=== PATIENT | female | born 1985 | race African-American/Black ===

== ENCOUNTER 2019-05-20 15:01 | Observation (INO) | payer OTHER, SELFPAY ==
[2019-05-20] VITALS (142 sets, daily range): BP systolic 136–193; BP diastolic 80–128; PULSE 82–105; RESP 14–18; TEMP 36.7–37.2; O2SAT 98–100; BMI 34.0
[2019-05-20] MEDS: LACTATED RINGERS 1,000 ML 75 ML IV CONT (15:45)
[2019-05-20 15:50] LABS: Basophils Percent Auto 0.3 % (0.2-1.2); Eosinophils Absolute Auto 0.1 K/mm3 (0-0.3); Eosinophils Percent Auto 0.4 % (0-4.4); Hemoglobin 13.9 g/dL (12.0-15.0); Immature Granulocyte Absolute 0.08 K/mm3 (0.00-0.031); Immature Granulocyte Percent A 0.6 % (0-0.5); Lymphocytes Absolute Auto 3.38 K/mm3 (0.9-3.2); Lymphocytes Percent Auto 24.5 % (18.3-44.2); Mean Corpuscular HGB Conc 33.1 g/dl (32-36); Mean Corpuscular Hemoglobin 29.8 pg (26-34); Mean Corpuscular Volume 89.9 fl (80-100); Mean Platelet Volume 9.5 fl (7.4-10.4); Monocytes Percent Auto 7.1 % (2.6-8.5); Neutrophils Absolute Auto 9.3 K/mm3 (1.3-6.7); Neutrophils Percent Auto 67.1 % (45.5-73.1); Platelet Count Result 438 k/mm3 (150-375); Red Blood Count 4.67 M/mm3 (4.2-5.4); Red Cell Distribution Width 15.6 % (11.5-14.5); White Blood Count 13.8 K/mm3 (4.5-10.0)
[2019-05-20] MEDS: LABETALOL HCL INJ 100 MG/20 ML VIAL 20 MG IV PUSH (15:50)
[2019-05-20] MEDS: MAGNESIUM SULF 4 GM/WATER100ML 4 GM/100 ML BAG IVPB (15:52)
[2019-05-20 15:55] LABS: Add Urine Microscopic? YES; Appearance Urine Clear (Clear); Bilirubin Urine Negative (Negative); Blood Urine 1+ (Negative); Color Urine Straw (Yellow); Glucose Urine UA Negative (Negative); Ketones Urine Negative (Negative); Leukocyte Esterase Ur Negative LEU/UL (Negative); Nitrate Urine Negative (Negative); Protein Urine 2+ mg/dL (Negative); RBC Urine 0-2 /hpf (0-2); Specific Grav Ur 1.005 (1.001-1.035); Squamous Epithelial Cell Urine Many /hpf (Few); Urobilinogen Urine Negative mg/dL (<2.0); WBC Urine 0-3 /hpf
[2019-05-20] MEDS: BETAMETHASONE SOD PHOS/ACETATE 30 MG/5 ML VIAL 12 MG IM (16:00)
[2019-05-20 16:03] LABS: Alanine Aminotransferase 22 U/L (4-35); Albumin Level 3.8 g/dL (3.5-5.1); Alkaline Phosphatase 344 U/L (38-126); Aspartate Amino Transferase 29 U/L (14-36); Bilirubin,Total 0.2 mg/dL (0.2-1.3); Blood Urea Nitrogen 5 mg/dL (7-17); Calcium 9.3 mg/dL (8.4-10.2); Carbon Dioxide 25 mmol/L (22-30); Chloride 98 mmol/L (98-107); Estimated Glomerular Filt Rate > 60; Glucose 87 mg/dL (65-105); Potassium 3.1 mmol/L (3.4-5.0); Sodium 133 mmol/L (137-145); Uric Acid 6.2 mg/dL (2.5-7.5)
[2019-05-20] MEDS: LABETALOL HCL INJ 100 MG/20 ML VIAL 40 MG IV PUSH (16:06)
--- NOTE | 2019-05-20 16:12 | OBADM ---
This patient, Preethi Cagle, admitted to the OB room 113 at 1501 for observation from office with severe hypertension in . Patient/family oriented to hospital policies and general routines including ID bracelet, bed and alarms, visiting hours, pain management, procedures, bathroom and other care routines, personal items, smoking policy, room service/diet, and visiting hours. Patient/Family are encouraged to report perceived risks to care and to ask questions if they do not understand what they are told or what they should do.
[2019-05-20] MEDS: MAGNESIUM SULF 20GM/WATER500ML 500 ML 50 MG IV CONT (16:22)
[2019-05-20] MEDS: LABETALOL HCL INJ 100 MG/20 ML VIAL 80 MG IV PUSH ×2 (16:26→16:42)
[2019-05-20 16:31] LABS: Creatinine Urine 40.3 mg/dL; Total Protein Urine Random 118 mg/dL
[2019-05-20] MEDS: hydrALAZINE HCL 20 MG/ML VIAL 10 MG IV PUSH (17:00)
[2019-05-20] MEDS: NIFEdipine 30 MG TAB.ER.24 PO (17:28)
--- NOTE | 2019-05-20 18:41 | PC.NURSE ---
Dr. Gibbons updated on patient VS, including BPs. Plan of care reviewed. Patient will be monitored over night and Dr. Gibbons will re-evaluate in the AM.
--- NOTE | 2019-05-20 18:50 | PC.NURSE ---
Plan of care discussed with patient. Patient states understanding of plan of care and denies questions at present time.
--- NOTE | 2019-05-20 20:25 | PC.NURSE ---
Plan of care discussed with Dr. Gibbons. Orders for regular diet given. FHT may be monitored intermittently if patient requests.
--- NOTE | 2019-05-20 22:50 | PC.NURSE ---
Patient reports headache rated 3/10. Patient denies epigastric pain or changes in vision. BP WNL. Reflexes 2+ without clonus.
--- NOTE | 2019-05-20 22:55 | PC.NURSE ---
Dr. Gibbons notified of patient JACOBS and recent BP. Orders given for acteminophen 1000mg PO q6hr PRN for JACOBS. Orders also given for 30ml Procardia XL PO QAM.
[2019-05-20] MEDS: ACETAMINOPHEN 500 MG TABLET 1000 MG PO (23:12)
[2019-05-21] VITALS (233 sets, daily range): BP systolic 127–167; BP diastolic 75–103; PULSE 81–129; RESP 14; TEMP 36.2–36.8; O2SAT 98–100
[2019-05-21] MEDS: MAGNESIUM SULF 20GM/WATER500ML 500 ML 50 MG IV CONT ×2 (02:18→12:02)
[2019-05-21] MEDS: LACTATED RINGERS 1,000 ML 75 ML IV CONT (04:07)
[2019-05-21] MEDS: ACETAMINOPHEN 500 MG TABLET 1000 MG PO (06:13)
[2019-05-21] MEDS: NIFEdipine 30 MG TAB.ER.24 PO ×2 (09:06→21:05)
[2019-05-21] MEDS: ONDANSETRON INJ 4 MG/2 ML VIAL IV PUSH (12:55)
[2019-05-21] MEDS: ASPIRIN 81 MG ENTERIC TABLET PO (13:32)
[2019-05-21] MEDS: BETAMETHASONE SOD PHOS/ACETATE 30 MG/5 ML VIAL 12 MG IM (15:57)
--- NOTE | 2019-05-21 18:37 | PC.NURSE ---
1805 -Patient states feeling better. Denies any weakness. Requests a shower. Patient allowed to shower and educated on symptoms to call out for. Patient verbalizes understanding.
--- NOTE | 2019-05-21 18:40 | PC.NURSE ---
1828 - Patient done in shower and back in bed. No complaints of dizziness, lightheadedness or nausea.
[2019-05-21] MEDS: metFORMIN HCL 500 MG TABLET 1000 MG PO (21:05)
[2019-05-21] MEDS: MULTIVIT/MIN/PREN/FOL AC/IRON TABLET 1 TAB PO (22:07)
[2019-05-22] VITALS (48 sets, daily range): BP systolic 134–166; BP diastolic 79–104; PULSE 79–124; O2SAT 98–100
--- NOTE | 2019-05-22 06:06 | PC.NURSE ---
@0600 - patient recorded blood pressure of 162/104. Patient laying on arm. Cuff repositioned and blood pressure re-ran. New blood pressure of 134/87 recorded.
[2019-05-22] MEDS: NIFEdipine 30 MG TAB.ER.24 PO ×3 (09:07→21:07)
[2019-05-22] MEDS: ASPIRIN 81 MG ENTERIC TABLET PO (09:07)
[2019-05-22] MEDS: ERGOCALCIFEROL 50,000 UNIT CAPSULE 50000 UNITS PO (09:07)
--- NOTE | 2019-05-22 11:23 | PM.IMHP ---
H&P: HPI History of Present Illness Chief complaint: pih Narrative: Preethi Cagle is a 33 year old female @ 28 weeks admitted for elevated bps in the office. reports feels okay had occassional headache at home with positive movement. Recent ultrasound showed 28 week with 8th percentile. Patient also had a shortened cervix on last ultrasound and started on progesterone therapy. PMFSH Past Medical History Medical History (Updated 05/22/19 @ 11:26 by Agustin Small MD) Chronic hypertension affecting Family History Family History (Updated 12/08/15 @ 23:19 by DOCTOR UNKNOWN) Mother Hypertension Family history of type 2 diabetes mellitus Father Hypertension Family history of type 2 diabetes mellitus Grandparent Family history of pancreatic cancer Family history of malignant neoplasm of breast Family history of type 2 diabetes mellitus Social History Social History (Updated 05/22/19 @ 11:26 by Agustin Small MD) Smoking status: Former smoker Tobacco type: cigarettes Alcohol intake: current Meds Home Medications and Allergies Home Medications Medication Instructions Recorded Confirmed Type PNV cmb#95-ferrous fumarate-FA 1 tablet PO DAILY 05/20/19 05/20/19 History [] ergocalciferol (vitamin D2) 50,000 unit PO WEEKLY 05/20/19 05/20/19 History [Vitamin D2] metformin 1,000 mg PO DAILY 05/20/19 05/20/19 History progesterone micronized 100 mg VAGINAL HS 05/20/19 05/20/19 History aspirin [Aspirin Low Dose] 81 mg PO DAILY 05/21/19 05/21/19 History Allergies Allergy/AdvReac Type Severity Reaction Status Date / Time No Known Allergies Allergy Mild Verified 05/20/19 17:06 Vital Signs Vital Signs - 24 hr 05/21/19 11:26 05/21/19 11:31 05/21/19 11:36 Pulse Rate Blood Pressure Pulse Oximetry 100 100 100 05/21/19 11:41 05/21/19 11:46 05/21/19 11:51 Pulse Rate Blood Pressure Pulse Oximetry 100 100 99 05/21/19 11:56 05/21/19 12:00 05/21/19 12:01 Pulse Rate 88 Blood Pressure 144/86 H Pulse Oximetry 98 98 05/21/19 12:06 05/21/19 12:11 05/21/19 12:16 Pulse Rate Blood Pressure Pulse Oximetry 98 100 99 05/21/19 12:21 05/21/19 12:26 05/21/19 12:31 Pulse Rate Blood Pressure Pulse Oximetry 100 100 100 05/21/19 12:36 05/21/19 12:41 05/21/19 12:46 Pulse Rate Blood Pressure Pulse Oximetry 100 100 100 05/21/19 12:51 05/21/19 12:56 05/21/19 13:00 Pulse Rate 98 Blood Pressure 165/99 H Pulse Oximetry 100 100 05/21/19 13:01 05/21/19 13:06 05/21/19 13:08 Pulse Rate 92 Blood Pressure 149/90 H Pulse Oximetry 100 99 05/21/19 13:11 05/21/19 13:16 05/21/19 13:21 Pulse Rate Blood Pressure Pulse Oximetry 99 100 100 05/21/19 13:26 05/21/19 13:31 05/21/19 13:36 Pulse Rate Blood Pressure Pulse Oximetry 100 100 100 05/21/19 13:41 05/21/19 13:46 05/21/19 13:51 Pulse Rate Blood Pressure Pulse Oximetry 99 100 99 05/21/19 13:56 05/21/19 14:01 05/21/19 14:06 Pulse Rate 98 Blood Pressure 135/75 Pulse Oximetry 100 100 100 05/21/19 14:11 05/21/19 14:16 05/21/19 14:21 Pulse Rate Blood Pressure Pulse Oximetry 100 100 99 05/21/19 14:26 05/21/19 14:31 05/21/19 14:36 Pulse Rate Blood Pressure Pulse Oximetry 100 100 100 05/21/19 14:41 05/21/19 14:46 05/21/19 14:51 Pulse Rate Blood Pressure Pulse Oximetry 100 100 100 05/21/19 14:53 05/21/19 14:58 05/21/19 15:00 Pulse Rate 99 Blood Pressure 153/90 H Pulse Oximetry 100 100 05/21/19 15:03 05/21/19 15:08 05/21/19 15:13 Pulse Rate Blood Pressure Pulse Oximetry 100 100 100 05/21/19 15:18 05/21/19 15:23 05/21/19 15:28 Pulse Rate Blood Pressure Pulse Oximetry 100 100 98 05/21/19 15:33 05/21/19 15:38 05/21/19 15:43 Pulse Rate Blood Pressure Pulse Oximetry 100 100 98 05/21/19 15:48 05/21/19 15:53 05/21/19 15:5
[2019-05-22 11:27] LABS: Total Volume 24 Hour Urine 6100 ml
[2019-05-22 11:28] LABS: Total Volume 24 Hour Urine 6100 ml
[2019-05-22 11:33] LABS: Specific Gravity Ur 1.003
[2019-05-22 11:43] LABS: Creatinine 24 Hour Urine 1.5 gm/24 (0.8-1.8); Creatinine Urine 26.1 mg/dL
[2019-05-22 11:55] LABS: Collection Time Urine 24 HOURS; Patient Weight 198 Lbs; Total Volume 24 Hour Urine 6100 ml
[2019-05-22 11:56] LABS: Creatinine Clearance Urine 8.1 ml/min (75-125); Creatinine Urine 1.5 mg/dL
[2019-05-22 16:12] LABS: Total Protein Urine Random 18 mg/dL
[2019-05-22] MEDS: LABETALOL HCL 100 MG TABLET 200 MG PO (19:03)
[2019-05-22] MEDS: MULTIVIT/MIN/PREN/FOL AC/IRON TABLET 1 TAB PO (21:07)
[2019-05-22] MEDS: metFORMIN HCL 500 MG TABLET 1000 MG PO (21:07)
[2019-05-22] MEDS: ZOLPIDEM TARTRATE 5 MG TABLET PO (22:06)
[2019-05-23] VITALS (87 sets, daily range): BP systolic 126–151; BP diastolic 72–102; PULSE 82–236; TEMP 36.6; O2SAT 90–100
[2019-05-23] MEDS: LABETALOL HCL 100 MG TABLET 200 MG PO (06:16)
[2019-05-23] MEDS: ASPIRIN 81 MG ENTERIC TABLET PO (09:12)
[2019-05-23] MEDS: NIFEdipine 30 MG TAB.ER.24 60 MG PO (09:12)
--- NOTE | 2019-05-23 10:54 | PC.NURSE ---
Patient called in, stated prescriptions were not ready at pharmacy. Called [facility] pharmacy in [place], verbal order for other medications given. Ambien was the only medication that the pharmacy received. 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
[2019-05-27 11:02] LABS: Total Protein Urine 24 Hr 1098 mg/24hr (0-149)
--- NOTE | 2019-07-05 08:11 | PM.OBTRLD ---
OB - Triage/Final Diagnosis Evaluation Laboratory results: Laboratory Tests 05/20/19 05/20/19 05/20/19 15:41 15:41 15:41 WBC 13.8 H RBC 4.67 Hgb 13.9 Hct 42.0 MCV 89.9 MCH 29.8 MCHC 33.1 RDW 15.6 H Plt Count 438 H MPV 9.5 Immature Gran % (Auto) 0.6 H Neut % (Auto) 67.1 Lymph % (Auto) 24.5 Gordon % (Auto) 7.1 Eos % (Auto) 0.4 Baso % (Auto) 0.3 Lymph # (Auto) 3.38 H Gordon # (Auto) 1.0 H Eos # (Auto) 0.1 Baso # (Auto) 0.0 Abs Immat Gran (auto) 0.08 H Absolute Neuts (auto) 9.3 H Absolute Nucleated RBC 0.0 Nucleated RBC % 0.0 Sodium 133 L Potassium 3.1 L Chloride 98 Carbon Dioxide 25 BUN 5 L Creatinine 0.70 Estim Creat Clear Calc Not Reportable Estimated GFR > 60 Glucose 87 Uric Acid 6.2 Calcium 9.3 Total Bilirubin 0.2 AST 29 ALT 22 Alkaline Phosphatase 344 H Total Protein 8.0 Albumin 3.8 Urine Color Urine Appearance Urine pH Ur Specific [place] Urine Protein Urine Glucose (UA) Urine Ketones Ur Blood (Man) Urine Nitrate Urine Bilirubin Urine Urobilinogen Leukocyte Esterase Rfl Urine RBC Urine WBC Ur Squamous Epith Cells U Random Total Protein 118 Ur 24 Hour Volume Urine Creatinine 40.3 Ur Creatinine 24 Hour Creatinine Clearance Ur Total Protein 24 Hr 05/20/19 05/21/19 05/21/19 15:41 10:00 10:00 WBC RBC Hgb Hct MCV MCH MCHC RDW Plt Count MPV Immature Gran % (Auto) Neut % (Auto) Lymph % (Auto) Gordon % (Auto) Eos % (Auto) Baso % (Auto) Lymph # (Auto) Gordon # (Auto) Eos # (Auto) Baso # (Auto) Abs Immat Gran (auto) Absolute Neuts (auto) Absolute Nucleated RBC Nucleated RBC % Sodium Potassium Chloride Carbon Dioxide BUN Creatinine Estim Creat Clear Calc Estimated GFR Glucose Uric Acid Calcium Total Bilirubin AST ALT Alkaline Phosphatase Total Protein Albumin Urine Color Straw Urine Appearance Clear Urine pH 6.0 Ur Specific [place] 1.005 Urine Protein 2+ H Urine Glucose (UA) Negative Urine Ketones Negative Ur Blood (Man) 1+ H Urine Nitrate Negative Urine Bilirubin Negative Urine Urobilinogen Negative Leukocyte Esterase Rfl Negative Urine RBC 0-2 Urine WBC 0-3 Ur Squamous Epith Cells Many H U Random Total Protein 18 Ur 24 Hour Volume 6100 6100 Urine Creatinine 26.1 Ur Creatinine 24 Hour 1.5 Creatinine Clearance Ur Total Protein 24 Hr 1098 H 05/21/19 10:00 WBC RBC Hgb Hct MCV MCH MCHC RDW Plt Count MPV Immature Gran % (Auto) Neut % (Auto) Lymph % (Auto) Gordon % (Auto) Eos % (Auto) Baso % (Auto) Lymph # (Auto) Gordon # (Auto) Eos # (Auto) Baso # (Auto) Abs Immat Gran (auto) Absolute Neuts (auto) Absolute Nucleated RBC Nucleated RBC % Sodium Potassium Chloride Carbon Dioxide BUN Creatinine Estim Creat Clear Calc Estimated GFR Glucose Uric Acid Calcium Total Bilirubin AST ALT Alkaline Phosphatase Total Protein Albumin Urine Color Urine Appearance Urine pH Ur Specific [place] Urine Protein Urine Glucose (UA) Urine Ketones Ur Blood (Man) Urine Nitrate Urine Bilirubin Urine Urobilinogen Leukocyte Esterase Rfl Urine RBC Urine WBC Ur Squamous Epith Cells U Random Total Protein Ur 24 Hour Volume 6100 Urine Creatinine 1.5 Ur Creatinine 24 Hour Creatinine Clearance 8.1 L Ur Total Protein 24 Hr Final Diagnosis (1) Pre-eclampsia affecting with pre-existing hypertension, delivered, current hospitalization: Status: Acute
== END 2019-05-23 10:20 | disposition home or self-care (01) ==
PROVIDERS: Admitting Provider Obstetrics & Gynecology Gynecology; Visit Provider Obstetrics & Gynecology
DX: O11.5 Pre-existing hypertension with pre-eclampsia, complicating the puerperium (principal); O10.93 Unspecified pre-existing hypertension complicating the puerperium; Z87.891 Personal history of nicotine dependence; Z79.82 Long term (current) use of aspirin; Z79.899 Other long term (current) drug therapy
CPT/HCPCS: 36415; 59025; 80053; 81001; 81050; 82570; 82575; 84156; 84550; 85025; 96361; 96365; 96366; 96372; 96375; 96376; A9270; G0378; G0379; J0360; J0702; J2405; J3475; J7120

== ENCOUNTER 2019-10-20 00:22 | Outpatient (CLI) | payer OTHER, SELFPAY ==
[2019-10-20 17:33] LABS: SARS-CoV-2 RNA PCR Negative
== END 2019-10-20 00:23 | disposition home or self-care (01) ==
LOC: ANHCOVIDDT 00:22
PROVIDERS: PCP Family Medicine; Visit Provider Obstetrics & Gynecology
DX: Z01.812 Encounter for preprocedural laboratory examination (principal); Z20.828 Contact with and (suspected) exposure to other viral communicable diseases
CPT/HCPCS: 87635; C9803; U0003

== ENCOUNTER 2019-10-20 08:19 | Outpatient (CLI) | payer OTHER, SELFPAY ==
--- NOTE | 2019-10-20 08:21 | ECG_ITS ---
Measurements Intervals [place] Rate: 101 P: 57 HI: 122 QRS: 25 QRSD: 90 T: 34 QT: 344 QTc: 446 Interpretive Statements SINUS TACHYCARDIA INCOMPLETE RIGHT BUNDLE BRANCH BLOCK NONSPECIFIC T-WAVE ABNORMALITY- INFERIOR LEADS ABNORMAL ECG Electronically Signed On 10-20-2019 8:34:42 CDT by Shiraz Workman D.O.
== END 2019-10-20 08:20 | disposition home or self-care (01) ==
LOC: ANHSURGERY 08:21
PROVIDERS: PCP Family Medicine; Visit Provider Obstetrics & Gynecology
DX: I10 Essential (primary) hypertension (principal); I45.10 Unspecified right bundle-branch block
CPT/HCPCS: 93005

== ENCOUNTER 2019-10-22 00:14 | Day surgery (SDC) | payer OTHER, SELFPAY ==
[2019-07-16 15:12] VITALS: BMI 30.5
[2019-10-14 09:45] VITALS: BMI 30.5
[2019-10-22] VITALS (10 sets, daily range): BP systolic 125–162; BP diastolic 81–97; PULSE 80–109; RESP 12–20; TEMP 36.1–36.3; O2SAT 94–100
[2019-10-22] MEDS: LACTATED RINGERS 1,000 ML 30 ML IV CONT ×2 (10:36→13:20)
--- NOTE | 2019-10-22 10:48 | WPDANESEPPF ---
Anes - Initial Pre Proc Eval Procedure: Operation Date: 10/22/19 12:00 Proposed Procedures p Laparoscopic Bilateral Tubal Ligation with Fallopian Rings - Agustin Small MD Date/Time: 10/22/19 10:48 Surgeon: Agustin Small MD Pre Op Diagnosis: desires sterilization Patient Data Age: 33 Gender: F Height: 5 ft 4 in Weight: 81 kg Last Vital Signs Temp 36.3 C L 10/22/19 10:41 Pulse 109 H 10/22/19 10:41 BP 125/82 10/22/19 10:41 Pulse Ox 100 10/22/19 10:41 Allergies Allergy/AdvReac Type Severity Reaction Status Date / Time No Known Allergies Allergy Mild Verified 10/14/19 09:46 Home Medications Medication Instructions Recorded Confirmed Type ergocalciferol (vitamin D2) 50,000 unit PO WEEKLY 05/20/19 10/22/19 History [Vitamin D2] metformin 1,000 mg PO QPM 05/20/19 10/22/19 History nifedipine 60 mg tablet,extended 60 mg PO DAILY #90 tablet 10/11/19 10/22/19 Rx release 24 hr Patient hx anesthesia problems: none Family hx anesthesia problems: none PMFSH Past Medical History Medical History Benign essential HTN Chronic hypertension affecting Family History Family History Mother Hypertension Family history of type 2 diabetes mellitus Father Hypertension Family history of type 2 diabetes mellitus Grandparent Family history of pancreatic cancer Family history of malignant neoplasm of breast Family history of type 2 diabetes mellitus Social History Social History Smoking status: Former smoker Tobacco type: cigarettes Alcohol intake: current Substance use: never Substance use type: does not use Gender identity (if verbalized by the patient): Female Anes - Eval Final PreProcedure Day of Procedure 10/22/19 10:48 Patient weight: obese Heart: regular rate and rhythm Lungs: clear to auscultation Airway: Mallampati scale class II Neurological: alert and oriented Last oral intake: >/= 8 hours ASA classification: II Emergent: no Anesthetic plan: proceed Anesthesia type and monitoring: general ETT and standard monitoring Informed Consent: The patient's anesthetic plan and its attendant risks and benefits were discussed with the patient/family/POA. Questions were solicited and answers provided to the satisfaction of the patient/family/POA.
--- NOTE | 2019-10-22 11:34 | PM.HPGS ---
History of Present Illness History of Present Illness Consent: Risks, benefits, and alternatives have been discussed and questions answered. Patient agrees to proceed with procedure. Chief complaint: desires sterilization Narrative: Preethi Cagle is a 33 year old female presented to office with desire for sterilization. PMFSH Past Medical History Medical History (Updated 10/22/19 @ 11:36 by Agustin Small MD) Benign essential HTN Chronic hypertension affecting Sterilization Surgical History Surgical History (Updated 10/22/19 @ 11:36 by Agustin Small MD) H/O: Family History Family History Mother Hypertension Family history of type 2 diabetes mellitus Father Hypertension Family history of type 2 diabetes mellitus Grandparent Family history of pancreatic cancer Family history of malignant neoplasm of breast Family history of type 2 diabetes mellitus Social History Social History Smoking status: Former smoker Tobacco type: cigarettes Alcohol intake: current Substance use: never Substance use type: does not use Gender identity (if verbalized by the patient): Female Meds Home Medications and Allergies Home Medications Medication Instructions Recorded Confirmed Type ergocalciferol (vitamin D2) 50,000 unit PO WEEKLY 05/20/19 10/22/19 History [Vitamin D2] metformin 1,000 mg PO QPM 05/20/19 10/22/19 History nifedipine 60 mg tablet,extended 60 mg PO DAILY #90 tablet 10/11/19 10/22/19 Rx release 24 hr Allergies Allergy/AdvReac Type Severity Reaction Status Date / Time No Known Allergies Allergy Mild Verified 10/14/19 09:46 Vital Signs Vital Signs - 24 hr 10/22/19 10:41 Temperature 36.3 C L Pulse Rate 109 H Blood Pressure 125/82 Pulse Oximetry 100 Assessment and Plan Assessment and plan (1) Sterilization: Code(s): Z30.2 - Encounter for sterilization Status: Acute Assessment and Plan: desires sterilizaition. scheduled for laparoscopy with tubal ligation. Risk and benefits reviewed with patient.
--- NOTE | 2019-10-22 11:47 | SUR.PREOP ---
1145-PT INFORMED PREVIOUS SURGEON DELAYS DR. PERERA ~30 MINUTES.
--- NOTE | 2019-10-23 13:54 | OP_ITS ---
DATE OF PROCEDURE: 10/22/2019 ANESTHESIA: General endotracheal tube. PREOPERATIVE DIAGNOSIS: Desires permanent sterilization. POSTOPERATIVE DIAGNOSIS: Desires permanent sterilization. PROCEDURE PERFORMED: Laparoscopy with bilateral tubal ligation with Falope rings. FINDINGS: Normal uterus, tubes, and ovaries. ESTIMATED BLOOD LOSS: 10 cc. COMPLICATIONS: None. DESCRIPTION OF PROCEDURE: The patient was taken to the operating room with IV running, prepared and draped in dorsal lithotomy position. Casselberry speculum was placed in the vagina and the cervix was identified and grasped anteriorly with a single-tooth tenaculum. An Rose manipulator was placed in the cervix. The speculum was removed. The bladder was drained 300 cc of clear urine prior to placing the speculum. Attention was turned to the abdomen. A 5 mm subumbilical incision was made through the skin. The Veress needle was inserted into the peritoneal cavity and insufflated with opening pressure of 3 mmHg. Peritoneal cavity was insufflated with CO2 gas to a maximum pressure of 15 mmHg. The Veress needle was removed and a 5 mm trocar was introduced without difficulty into the peritoneal cavity. The laparoscope was introduced under direct visualization with the trocar. Uterus was visualized and was noted to be normal. A 5 mm suprapubic incision was then made through skin and the 2nd 5 mm trocar was introduced into the peritoneal cavity under direct visualization. A probe was placed and tubes were visualized bilaterally including the fimbriated ends. The tube was grasped with the Falope ring device and the tube was bent using the Falope ring, right and left tubes bilaterally. The Falope ring applicator was removed. A suprapubic port was removed. The CO2 gas was allowed to escape and the umbilical port was removed. Hemostasis was assured. The skin incisions were approximated with 4-0 Vicryl in a subcuticular manner. The instruments were removed from the vagina. All sponge, lap, and needle counts were correct x2. The patient was taken to recovery room in stable condition. D I MT: Arturo
== END 2019-10-22 15:59 | disposition home or self-care (01) ==
PROVIDERS: PCP Family Medicine; Visit Provider Obstetrics & Gynecology
PROC: (CPT 58671; principal; 2019-10-22 12:00)
DX: Z30.2 Encounter for sterilization (principal); I10 Essential (primary) hypertension; Z87.891 Personal history of nicotine dependence; E66.9 Obesity, unspecified; Z68.30 Body mass index [BMI] 30.0-30.9, adult
CPT/HCPCS: 58671; A4264; A9270; J1100; J1885; J2250; J2405; J2704; J2710; J3010; J7120

== ENCOUNTER 2021-03-09 13:58 | Outpatient (CLI) | payer OTHER, SELFPAY ==
[2021-03-09 14:42] LABS: Basophils Percent Auto 0.3 % (0.2-1.2); Eosinophils Absolute Auto 0.1 K/mm3 (0-0.3); Eosinophils Percent Auto 1.1 % (0-4.4); Hematocrit 32.4 % (37.0-47.0); Hemoglobin 10.6 g/dL (12.0-15.0); Immature Granulocyte Absolute 0.03 K/mm3 (0.00-0.031); Immature Granulocyte Percent A 0.3 % (0-0.5); Lymphocytes Absolute Auto 2.23 K/mm3 (0.9-3.2); Mean Corpuscular HGB Conc 32.7 g/dl (32-36); Mean Corpuscular Volume 85.7 fl (80-100); Monocytes Absolute Auto 0.6 K/mm3 (0.1-0.6); Monocytes Percent Auto 5.7 % (2.6-8.5); Neutrophils Absolute Auto 6.8 K/mm3 (1.3-6.7); Neutrophils Percent Auto 69.6 % (45.5-73.1); Platelet Count Result 384 k/mm3 (150-375); Red Blood Count 3.78 M/mm3 (4.2-5.4); Red Cell Distribution Width 15.9 % (11.5-14.5); White Blood Count 9.7 K/mm3 (4.5-10.0)
[2021-03-09 14:59] LABS: Alanine Aminotransferase 38 U/L (4-35); Albumin Level 4.6 g/dL (3.5-5.1); Alkaline Phosphatase 85 U/L (38-126); Anion Gap 7 mmol/L (8-16); Aspartate Amino Transferase 32 U/L (14-36); Bilirubin,Total 0.5 mg/dL (0.2-1.3); Blood Urea Nitrogen 12 mg/dL (7-17); Calcium 9.2 mg/dL (8.4-10.2); Carbon Dioxide 28 mmol/L (22-30); Chloride 104 mmol/L (98-107); Estimated Glomerular Filt Rate > 60; Glucose 117 mg/dL (65-110); Potassium 3.9 mmol/L (3.4-5.0); Sodium 139 mmol/L (137-145)
== END 2021-03-09 13:59 | disposition home or self-care (01) ==
PROVIDERS: PCP Family Medicine; Visit Provider Physician Assistant
DX: F32.1 Major depressive disorder, single episode, moderate (principal); F43.0 Acute stress reaction; I10 Essential (primary) hypertension
CPT/HCPCS: 36415; 80053; 84443; 85025

== ENCOUNTER 2021-04-27 11:55 | Outpatient (CLI) | payer OTHER, SELFPAY ==
[2021-04-27 12:10] LABS: Basophils Percent Auto 0.4 % (0.2-1.2); Eosinophils Absolute Auto 0.1 K/mm3 (0-0.3); Eosinophils Percent Auto 1.1 % (0-4.4); Hematocrit 34.1 % (37.0-47.0); Immature Granulocyte Absolute 0.03 K/mm3 (0.00-0.031); Immature Granulocyte Percent A 0.4 % (0-0.5); Lymphocytes Percent Auto 26.6 % (18.3-44.2); Mean Corpuscular HGB Conc 32.3 g/dl (32-36); Mean Corpuscular Hemoglobin 28.2 pg (26-34); Mean Corpuscular Volume 87.4 fl (80-100); Mean Platelet Volume 8.9 fl (7.4-10.4); Monocytes Absolute Auto 0.6 K/mm3 (0.1-0.6); Monocytes Percent Auto 7.7 % (2.6-8.5); Neutrophils Absolute Auto 4.8 K/mm3 (1.3-6.7); Neutrophils Percent Auto 63.8 % (45.5-73.1); Platelet Count Result 388 k/mm3 (150-375); Red Cell Distribution Width 15.4 % (11.5-14.5); White Blood Count 7.5 K/mm3 (4.5-10.0)
[2021-04-27 12:25] LABS: Alanine Aminotransferase 38 U/L (4-35); Albumin Level 4.6 g/dL (3.5-5.1); Alkaline Phosphatase 99 U/L (38-126); Anion Gap 10 mmol/L (8-16); Aspartate Amino Transferase 37 U/L (14-36); Bilirubin,Total 0.4 mg/dL (0.2-1.3); Blood Urea Nitrogen 12 mg/dL (7-17); Calcium 9.4 mg/dL (8.4-10.2); Carbon Dioxide 28 mmol/L (22-30); Chloride 102 mmol/L (98-107); Estimated Glomerular Filt Rate > 60; Glucose 106 mg/dL (65-110); Potassium 3.9 mmol/L (3.4-5.0); Sodium 140 mmol/L (137-145)
[2021-04-27 12:40] LABS: Iron 52 ug/dL (37-170)
[2021-04-27 12:49] LABS: Percent Iron Saturation 12 % (20-50)
[2021-04-27 13:10] LABS: Hemoglobin A1C 5.7 % (<5.7)
== END 2021-04-27 11:56 | disposition home or self-care (01) ==
PROVIDERS: PCP Family Medicine; Visit Provider Nurse Practitioner Gerontology
DX: D64.9 Anemia, unspecified (principal); R73.9 Hyperglycemia, unspecified; R74.8 Abnormal levels of other serum enzymes
CPT/HCPCS: 36415; 80053; 83036; 83540; 83550; 85025

== ENCOUNTER 2022-06-14 14:28 | Outpatient (CLI) | payer OTHER, SELFPAY ==
[2022-06-14 15:26] LABS: Basophils Absolute Auto 0.1 K/mm3 (0.0-0.1); Basophils Percent Auto 0.5 % (0.2-1.2); Eosinophils Absolute Auto 0.3 K/mm3 (0-0.3); Eosinophils Percent Auto 3.1 % (0-4.4); Hematocrit 36.5 % (37.0-47.0); Hemoglobin 11.9 g/dL (12.0-15.0); Immature Granulocyte Absolute 0.03 K/mm3 (0.00-0.031); Immature Granulocyte Percent A 0.3 % (0-0.5); Lymphocytes Absolute Auto 2.49 K/mm3 (0.9-3.2); Lymphocytes Percent Auto 25.5 % (18.3-44.2); Mean Corpuscular HGB Conc 32.6 g/dl (32-36); Mean Corpuscular Hemoglobin 27.7 pg (26-34); Mean Corpuscular Volume 85.1 fl (80-100); Mean Platelet Volume 8.4 fl (7.4-10.4); Monocytes Absolute Auto 0.8 K/mm3 (0.1-0.6); Monocytes Percent Auto 7.8 % (2.6-8.5); Neutrophils Absolute Auto 6.1 K/mm3 (1.3-6.7); Neutrophils Percent Auto 62.8 % (45.5-73.1); Platelet Count Result 335 k/mm3 (150-375); Red Blood Count 4.29 M/mm3 (4.2-5.4); Red Cell Distribution Width 17.5 % (11.5-14.5); White Blood Count 9.8 K/mm3 (4.5-10.0)
[2022-06-14 15:36] LABS: Alanine Aminotransferase 38 U/L (6-35); Albumin Level 4.9 g/dL (3.5-5.1); Alkaline Phosphatase 100 U/L (38-126); Anion Gap 6 mmol/L (8-16); Aspartate Amino Transferase 33 U/L (14-36); Bilirubin,Total 0.6 mg/dL (0.2-1.3); Blood Urea Nitrogen 10 mg/dL (7-17); Calcium 9.1 mg/dL (8.4-10.2); Carbon Dioxide 28 mmol/L (22-30); Chloride 98 mmol/L (98-107); Cholesterol 231 mg/dL (0-200); Estimated Glomerular Filt Rate > 60; Glucose 83 mg/dL (65-110); HDL Direct 44 mg/dL; Potassium 3.9 mmol/L (3.4-5.0); Sodium 132 mmol/L (137-145); Triglycerides 99 mg/dL (<150)
[2022-06-14 15:38] LABS: Hemoglobin A1C 5.3 % (<5.7)
[2022-06-14 15:47] LABS: LDL Cholesterol Direct 133 mg/dL
[2022-06-20 12:00] LABS: Vitamin D 1,25 (OH)2 Total 84 pg/mL (18-72); Vitamin D2 1,25 (OH)2 50 pg/mL; Vitamin D3 1,25 (OH)2 34 pg/mL
== END 2022-06-14 14:29 | disposition home or self-care (01) ==
LOC: ANHLAB 14:30
PROVIDERS: PCP Family Medicine; Visit Provider Family Medicine
DX: E78.2 Mixed hyperlipidemia (principal); Z13.21 Encounter for screening for nutritional disorder; D64.9 Anemia, unspecified; K59.00 Constipation, unspecified; E11.9 Type 2 diabetes mellitus without complications; I10 Essential (primary) hypertension; E55.9 Vitamin D deficiency, unspecified
CPT/HCPCS: 36415; 80053; 80061; 82652; 83036; 84443; 85025

== ENCOUNTER 2022-07-25 16:27 | Outpatient (CLI) | payer OTHER, SELFPAY ==
[2022-07-25 17:22] LABS: Alanine Aminotransferase 36 U/L (6-35); Albumin Level 4.7 g/dL (3.5-5.1); Alkaline Phosphatase 86 U/L (38-126); Anion Gap 8 mmol/L (8-16); Aspartate Amino Transferase 31 U/L (14-36); Bilirubin,Total 0.4 mg/dL (0.2-1.3); Blood Urea Nitrogen 14 mg/dL (7-17); Calcium 9.3 mg/dL (8.4-10.2); Carbon Dioxide 30 mmol/L (22-30); Chloride 100 mmol/L (98-107); Estimated Glomerular Filt Rate > 60; Glucose 100 mg/dL (65-110); Potassium 3.4 mmol/L (3.4-5.0); Sodium 138 mmol/L (137-145)
== END 2022-07-25 16:28 | disposition home or self-care (01) ==
LOC: ANHLAB 16:29
PROVIDERS: PCP Family Medicine; Visit Provider Family Medicine
DX: I10 Essential (primary) hypertension (principal)
CPT/HCPCS: 36415; 80053

== ENCOUNTER 2022-08-21 16:31 | Outpatient (CLI) | payer OTHER, SELFPAY ==
--- NOTE | ~2022-08-21 | XR_ITS ---
Left Shoulder Technique: AP and scapular Y views were obtained. Clinical History: Pain Findings: No fracture or dislocation is seen. Osseous alignment is anatomic. The glenohumeral and acr omioclavicular joint spaces are preserved. Soft tissues are unremarkable. Impression: Unremarkable left shoulder radiographs. Reviewed, dictated and finalized at [facility]. Impression: Unremarkable left shoulder radiographs.
== END 2022-08-21 16:32 | disposition home or self-care (01) ==
LOC: ANHIMG 16:34
PROVIDERS: PCP Family Medicine; Visit Provider Nurse Practitioner Gerontology
DX: M25.512 Pain in left shoulder (principal)
CPT/HCPCS: 73030

== ENCOUNTER 2022-09-03 13:59 | Outpatient (CLI) | payer OTHER, SELFPAY ==
--- NOTE | ~2022-09-03 | XR_ITS ---
EXAMINATION:XR cervical spine 4-5V DATE: 09/03/2022 14:18 INDICATION: Neck pain TECHNIQUE: AP, lateral, lateral swimmers and odontoid views of the cervical spine are provided. COMPARISON: None FINDINGS: There is straightening of the cervical spine which can be positional or due to muscular spa sm. Alignment is normal. The odontoid process is intact. No fracture is identified. Vertebral body he ights and disk spaces are normal. Prevertebral soft tissues are normal. IMPRESSION: 1. Straightening of the cervical spine without acute osseous abnormality, which can be positional or due to muscular spasm. Reviewed, dictated and finalized at location L.
[2022-09-03 14:17] LABS: Alanine Aminotransferase 44 U/L (6-35); Aspartate Amino Transferase 41 U/L (14-36)
== END 2022-09-03 14:00 | disposition home or self-care (01) ==
LOC: ANHLAB 14:00
PROVIDERS: PCP Family Medicine; Visit Provider Physician Assistant
DX: M54.12 Radiculopathy, cervical region (principal); R74.8 Abnormal levels of other serum enzymes
CPT/HCPCS: 36415; 72050; 84450; 84460

== ENCOUNTER 2025-01-25 08:28 | Outpatient (CLI) | payer BC, OTHER, SELFPAY ==
[2025-01-25 09:26] LABS: Hematocrit 35.2 % (37.0-47.0); Hemoglobin 11.3 g/dL (12.0-15.0); Immature Granulocyte Percent A 0.4 % (0-0.5); Lymphocytes Absolute Auto 2.26 K/mm3 (0.9-3.2); Mean Corpuscular HGB Conc 32.1 g/dl (32-36); Mean Corpuscular Hemoglobin 26.9 pg (26-34); Mean Corpuscular Volume 83.8 fl (80-100); Nucleated Red Blood Cells Absolute Auto 0.000 K/mm3 (0.0-0.012); Nucleated Red Blood Cells Perc 0.0 % (0.0-0.2); Platelet Count Result 486 k/mm3 (150-375); Red Blood Count 4.20 M/mm3 (4.2-5.4); White Blood Count 8.2 K/mm3 (4.5-10.0)
--- OUTSIDE RECORDS SUMMARY | 2025-01-25 09:28 | XMS_ITS | Clinical Summary ---
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 Role Phone Unavailable Primary Care Provider Unavailabl e Social History Tobacco Use Types Packs/Day Years Used Date Smoking Tobacco: Never Assessed Comments Unknown Sex and Gender Information Value Date Recorded Sex Assigned at Not on file Legal Sex Female 2:18 PM CDT Gender Identity Not on file Sexual Orientation Not on file Plan of Treatment Health Maintenance Due Date Last Done Comments DTAP/TDAP/TD VACCINES (1 - Tdap) 11/20/2002 HEPATITIS B VACCINES (1 of 3 - 19+ 3-dose series) 11/09 HPV/Cotest (21-29) 11/20/2004 HPV VACCINES (1 - 3-dose SCDM series) 11/20/2010 CERVICAL CANCER SCREENING 11/20/2013 HPV/Cotest (30-65) 11/20/2013 PAP SMEAR 11/20/2013 BREAST CANCER SCREENING 2023 INFLUENZA VACCINE (#1) 2024 Insurance [facility] [employer] PPO [id number]
--- OUTSIDE RECORDS SUMMARY | 2025-01-25 09:28 | XMS_ITS | Clinical Summary ---
Author Organization [facility] [employer] Address [address] 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 This disclosure is being madepursuant to the Care Everywhere program and may not contain all information available regarding this patient. Last updated 18.[facility] [employer] Allergies No known active allergies Medications * Be aware that medications may not be up to date on this document. Alwaysverify current medications with the patient. Vit-Fe Fumarate-FA ( VITAMIN) 28-0.8 MG tablet Take 1 Tab by mouth daily. Active ibuprofen (MOTRIN) 600 MG tablet Take 1 Tab by mouth every 6 hours as needed for Pain. 60 Tab 2 09/02/2010 Active NIFEdipine CR 24hr (ADALAT CC) 60 MG tablet Take 1 Tab by mouth 2 times daily. Take on an empty stomach. 60 Tab 2 09/02/2010 Active ferrous sulfate 325 (65 FE) MG tablet Take 1 Tab by mouth daily with breakfast. 30 Tab 3 09/02/2010 Active docusate sodium (COLACE) 100 MG capsule Take 1 Cap by mouth nightly as needed for Constipation. 30 Cap 3 09/02/2010 Active NIFEdipine CR 24hr (ADALAT CC) 60 MG tablet Take 1 tablet by mouth 2 times daily Take on an empty stomach. 60 tablet 1 05/31/2019 Active ferrous sulfate 325 (65 FE) MG tablet Take 1 tablet by mouth once daily 100 tablet 05/31/2019 Active oxyCODONE-aceta minophen (PERCOCET) 5-325 MG tablet Take 1 tablet by mouth every 6 hours as needed for Pain 20 tablet 05/31/2019 Active ibuprofen (MOTRIN) 600 MG tablet Take 1 tablet by mouth every 6 hours as needed for Pain 40 tablet 1 05/31/2019 Active docusate sodium (COLACE) 100 MG capsule Take 1 capsule by mouth 2 times daily 60 capsule 1 05/31/2019 Active labetalol (NORMODYNE; TRANDATE) 200 MG tabletIndicatio ns:Hypertension Take 1 tablet by mouth every 12 hours Reasons: High Blood Pressure Disorder 05/31/2019 Active Active Problems Problem Noted Date Diagnosed Date Supervision of other high-risk 011 Overview (03/19/2015): Dating: Labs: A+/I/-/- HIV: NR Hemoglobin electrophoresis: Pap: GC/CT: neg Urine Cx: E. coli 05/10 Anatomy u/s: GBS: Chronic hypertension complic ating or reason for care during 08/23/2010 Overview (08/23/2010): Diagnosed this Currently on procardia 90 XL qd with history of 08/23/2010 Overview (08/23/2010): Elective Ab and sAb Delivery of by section Family History Medical History Relation Name Comments Hypertension Father Cancer Maternal Grandmother Hypertension Mother Diabetes Paternal Grandfather Relation Name Status Comments Father Maternal Grandmother Mother Paternal Grandfather Social History Tobacco Use Types Packs/Day Years Used Date Smoking Tobacco: Former Smokeless Tobacco: Never Tobacco Cessation:Counseling Given: Yes Alcohol Use Standard Drinks/Week Comments No 0 (1 standard drink = 0.6 oz pur e alcohol) Comments No Sex and Gender Information Value Date Recorded Sex Assigned at Not on file 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 Gender Identity Not on file Sexual Orientation Not on file Last Filed Vital Signs Vital Sign Reading Time Taken Comments Blood Pressure 127/83 05/31/2019 1:30 PM LOCKSTITCH WAISTLINE JOINER Pulse 101 05/31/2019 1:30 PM LOCKSTITCH WAISTLINE JOINER Temperature 36.6 C (97.9 F) 05/31/2019 8:20 AM LOCKSTITCH WAISTLINE JOINER Respiratory Rate 18 05/31/2019 1:30 PM LOCKSTITCH WAISTLINE JOINER Oxygen Saturation 100% 05/31/2019 11:30 AM LOCKSTITCH WAISTLINE JOINER Inhaled Oxygen Concentration 21% 08/30/2010 1 :46 AM CDT Weight 88.5 kg (195 lb) 05/24/2019 2:15 PM LOCKSTITCH WAISTLINE JOINER Height 160 cm (5' 3) 05/24/2019 2:15 PM LOCKSTITCH WAISTLINE JOINER Body Mass Index 34.54 05/24/2019 2:15 PM LOCKSTITCH WAISTLINE JOINER Plan of Treatment Health Maintenance Due Date Last Done Comments LIPID TESTING 1983 MAMMOGRAM 1983 HIV SCREENING 11/20/1998 HEPATITIS C SCREENING 11/16/2001 DTAP/TDAP/TD VACCINES (1 - Tdap) 11/20/2002 HEPATITIS B VACCINE (1 of 3 - 19+ 3-dose series) 11/20/2002 HPV VACCINE (1 - 3-dose SCDM series) 11/20/2010 DEPRESSION SCREENING 05/12/2024 COVID-19 VACCINE (1 - 2023-2 5 season) 2025 INFLUENZA VACCINE (#1) 2025 ZOSTER VACCINE (1 of 2) 11/20/2033 HIB VACCINE Aged Out No longer eligi ble based on patient's age to complete this topic MENINGOCOCCAL (Group B) VACC INE SHARED DECISION-MAKING Aged Out No longer eligibl e based on patient's age to complete this topic MENINGOCOCCAL GROUPS A/C/Y/W VACCINE Aged Out No longer eligible b ased on patient's age to complete this topic PNEUMOCOCCAL VACCINE Aged Out No long er eligible based on patient's age to complete this topic Insurance [place] [address] [place] [id number] Advance Directives * Full Code (Latest Code Status on File) Date Activated Date Inactivated Comments 05/27/2019 9:34 AM 05/31/2019 4:18 PM * Full Code Date Activated Date Inactivated Comments 05/24/2019 2:11 PM 05/27/2019 9:34 AM * Full Code Date Activated Date Inactivated Comments 08/23/2010 2:21 PM 09/02/2010 11:31 PM Care Teams Waste Machine Offbearer Relationship Specialty Start Date End Date Marion Sánchez MD [address] [facility] [address] [place] [phone] PCP - General Family Medicine 05/24/19
--- OUTSIDE RECORDS SUMMARY | 2025-01-25 09:28 | XMS_ITS | Clinical Summary ---
Author Organization [facility] [place] [facility] [address] [facility] Address [address] [facility] [place] [address] Care Team Providers Care Head Machinist Name Role Phone Unknown, Notinfile Primary Care Provider Unavail able Allergies No known active allergies Medications hydroCHLOROthia zide (HYDRODIURIL) 25 mg tablet Take 1 tablet (25 mg total) by mouth daily 5 Active meloxicam (MOBIC) 15 mg tablet Take 1 tablet (15 mg total) by mouth daily 5 Active NIFEdipine XL 60 mg 24 hr tablet Take 1 tablet (60 mg total) by mouth daily 5 Active fluticasone propionate (FLONASE) 50 mcg/actuation nasal spray Administer 2 sprays into each nostril daily for 10 days 1 each 5 Active azelastine (ASTELIN) 137 mcg (0.1 %) nasal spray Administer 1 spray into each nostril 2 (two) times a day Use in each nostril as directed Active Active Problems No known active problems Social History Tobacco Use Types Packs/Day Years Used Date Smoking Tobacco: Never Smokeless Tobacco: Never Personal Safety Answer Date Recorded Getting School Help Needed Not on file 07/05 Comments No Sex and Gender Information Value Date Recorded Sex Assigned at Not on file Legal Sex Female 10:40 PM [employer] Gender Identity Female 10/20/2023 1:00 PM CDT Sexual Orientation Straight 10/20/2023 1: 00 PM CDT Obstetrics History Last Filed Vital Signs Vital Sign Reading Time Taken Comments Blood Pressure 134/80 10/31/2021 1:40 PM CDT Pulse 92 10/31/2021 1:40 PM CDT Temperature 37 C (98.6 F) 10/31/2021 1:40 PM CDT Respiratory Rate 18 10/31/2021 1:40 PM CDT Oxygen Saturation 99% 10/31/2021 1:40 PM CDT Inhaled Oxygen Concentration - - Weight 91 kg (200 lb 9.6 oz) 12/10/2018 5:33 PM CDT Height 162.6 cm (5' 4) 12/10/2018 5:33 PM CDT Body Mass Index 34.43 12/10/2018 5:33 PM CDT Plan of Treatment Health Maintenance Due Date Last Done Comments Breast Cancer Screening-Mammogram 1985 Cervical Cancer Screening 1983 Depression Screening 1983 Hepatitis C Screening 1985 DTaP/Tdap/Td Vaccine (1 - Tdap) 11/20/1994 Varicella Vaccines (1 of 2 - 13+ 2-dose series) 11/20/1996 Hepatitis B Screening 11/20/2001 Regular Well Visit/Exam 18-64 11/20/2001 HPV Vaccines (1 - 3-dose SCDM series) 11/20/2010 Covid-19 Vaccine (2024- season) 2025 04/29/2021, 08/11/2020, 07/10/2020 Influenza Vaccine (#1) 2025 , 02/03/2020, 02/04/2019, Additional history exists Pneumococcal vaccine <65 Aged Out No longer eligible based on patient's age to complete this topic Insurance [id number] CHOICE [place]US [place] CHOICE [place] PPO [place] Care Teams Head Machinist Relationship Specialty Start Date End Date Unknown, Notinfile PCP - General 12/10/18
--- OUTSIDE RECORDS SUMMARY | 2025-01-25 09:28 | XMS_ITS | Clinical Summary ---
Author Organization [facility] Address [address] [address] Phone Care Team Providers Care Account Receivable Associate Name Role Phone Marion Sánchez MD Primary Care Provider [phone] Ehsan Urbano DO Unavailable Medications polyethylene glycol (MIRALAX) Powder Use entire 255g bottle with 64oz of clear liquid as directed for colonoscopy prep. 255 g 0 7 Active Social History Tobacco Use Types Packs/Day Years Used Date Smoking Tobacco: Never Assessed Comments Unknown Sex and Gender Information Value Date Recorded Sex Assigned at Not on file Legal Sex Female 12:32 AM CDT Gender Identity Not on file Sexual Orientation Not on file Plan of Treatment Health Maintenance Due Date Last Done Comments Hepatitis C Virus (HCV) Screening 1985 TdaP Immunization 1985 Hepatitis B Immunization (1 of 3 - 19+ 3-dose series) 11/20/2002 Pap Smear 11/20/2004 Human Papillomavirus (HPV) Immunization (1 - 3-dose SCDM series) 11/20/2010 Cervical Cancer Screening (CCS) 11/20/2013 HPV/Cotest 11/20/2013 SARS-COV-2 Immunization ( season) 2024 04/29/2021, 08/11/2020, 07/10/2020 Influenza Immunization (#1) 01/10/202501/11, 02/04/2019, 01/29/2018, Additional history exists Respiratory Syncytial Virus (RSV) Immunization (Adult) (1 - 1-dose 75+ series) 11/20/2058 Meningococcal Immunization (ACWY) Aged Out No longer eligible based on patient's age to complete this topic Pneumococcal Immunization Combined Aged Out No longer eligible based on patient's age to complete this topic Rotavirus Immunization Aged Out No lo nger eligible based on patient's age to complete this topic Care Teams Account Receivable Associate Relationship Specialty Start Date End Date Marion Sánchez MD [address] [place] [address] PCP - General Family Medicine 12/25/16 Ehsan Urbano DO [address] [place] [address] Gastroenterology 12/25/16
[2025-01-25 09:55] LABS: Alanine Aminotransferase 41 U/L (6-35); Albumin Level 4.4 g/dL (3.5-5.1); Alkaline Phosphatase 79 U/L (38-126); Anion Gap 11 mmol/L (4-12); Aspartate Amino Transferase 39 U/L (14-36); Bilirubin,Total 0.3 mg/dL (0.2-1.3); Blood Urea Nitrogen 13 mg/dL (7-17); Calcium 8.9 mg/dL (8.4-10.2); Carbon Dioxide 29 mmol/L (22-30); Chloride 99 mmol/L (98-107); Cholesterol 225 mg/dL (0-200); Estimated Glomerular Filt Rate 58; Glucose 107 mg/dL (65-110); HDL Direct 38 mg/dL; Potassium 3.2 mmol/L (3.4-5.0); Sodium 139 mmol/L (137-145); Total Protein 8.5 g/dL (6.3-8.2); Triglycerides 121 mg/dL (<150)
== END 2025-01-25 08:29 | disposition home or self-care (01) ==
LOC: ANHLAB 08:36
PROVIDERS: PCP Family Medicine; Visit Provider Physician Assistant
DX: D64.9 Anemia, unspecified (principal); I10 Essential (primary) hypertension; E55.9 Vitamin D deficiency, unspecified
CPT/HCPCS: 36415; 80053; 80061; 82306; 85025